=== PATIENT | male | born 1950 | race Caucasian/White ===

== ENCOUNTER → 2017-06-27 | Outpatient (CLI) | payer BC ==
[~2017-06-27] MED LIST: CHLO50TA PO; OPTIRAY 320 IV PRN
--- NOTE | 2017-06-27 08:04 | DIAGNOSTIC IMAGING REPORT ---
CT SOFT TISSUE NECK WITH CT DOSE: 489.30 mGycm CLINICAL HISTORY: R22.1 former smoker. Right-sided neck mass. Difficulty swallowing. TECHNIQUE: Helical images were acquired during intravenous administration of 116 cc of Optiray 320. A dose lowering technique was utilized adhering to the principles of ALARA. COMPARISON STUDY: None. FINDINGS: The visualized portions of the lung apices are unremarkable. No thyroid masses are visualized. No salivary gland masses are visualized. There are no pathologically enlarged cervical lymph nodes. No necrotic nodes are evident. There are no fluid collections suspicious for abscess. There is no evidence of airway compromise. No mucosal space masses are visualized. There is mild maxilla sinus mucosal thickening. There is a right maxilla sinus retention cyst. IMPRESSION: No pathologic masses or adenopathy identified on CT scanning. Electronically signed by: Marshall Noel M.D. 06/27/2017 8:02 AM Dictated Date/Time: 06/27/2017 7:58 AM
== END | disposition home or self-care (01) ==
LOC: C.CTS 07:24
DX: R22.1 Localized swelling, mass and lump, neck (principal)